=== PATIENT | male | born 1960 | race African-American/Black ===

== ENCOUNTER 2021-01-08 04:29 | Observation (INO) | payer OTHER ==
[2021-01-08 04:56] VITALS: Wt 109.1 kg
[2021-01-08 05:11] LABS: BASOPHILS 0.4 % (0-2); EOSINOPHILS 0.8 % (0-7); HEMATOCRIT 42.6 % (42.0-54.0); HEMOGLOBIN 14.5 g/dL (13.5-17.5); LYMPHOCYTES 10.8 % (15-50); MCHC 34.2 g/dL (31.0-37.0); MCV 87.9 fL (80.0-100.0); MEAN PLATELET VOLUME 9.7 fL (7.4-10.4); MONOCYTES 5.6 % (2-11); NEUTROPHILS 82.4 % (40-80); PLATELET COUNT 197 10x3/uL (130-400); RBC 4.84 10x6/uL (4.20-6.10); RDW 12.6 % (11.5-14.5); WBC 8.7 10x3/uL (4.8-10.8)
[2021-01-08 05:23] LABS: CALC OSMOLALITY 284 mosm/kg (275-300); CALCIUM 9.4 mg/dL (8.5-10.1); CHLORIDE - SERUM 104 mmol/L (98-107); CREATININE - SERUM 1.7 mg/dL (0.6-1.3); GLUCOSE 138 mg/dL (74-106); POTASSIUM - SERUM 3.6 mmol/L (3.5-5.1); SODIUM 141 mmol/L (136-145); UREA NITROGEN 17 mg/dL (7-18); eGFR NON AFRICAN AMERICAN 44 mL/min (90-120)
[2021-01-08 05:45] LABS: ALBUMIN 4.2 g/dL (3.4-5.0); ALKALINE PHOSPHATASE 69 U/L (30-120); ALT (SGPT) 41 U/L (10-68); BILIRUBIN - TOTAL 0.57 mg/dL (0.2-1.3); LIPASE 114 U/L (73-393); MAGNESIUM - SERUM 1.9 mg/dL (1.8-2.4); PRO BNP 53 pg/mL (0-125); PROTEIN - SERUM 7.9 g/dL (6.4-8.2)
[2021-01-08 05:51] LABS: CKMB 8.3 U/L (0.0-3.6); CREATINE KINASE 1157 UL (21-232); TROPONIN-I < 0.017 ng/mL (0.000-0.060)
[2021-01-08 06:04] LABS: INR 1.07 (0.85-1.17); PROTIME 12.8 SECONDS (11.6-15.0)
[2021-01-08 06:05] LABS: D-DIMER-QUANTITATIVE 0.27 ug/mLFEU (0.20-0.54)
[2021-01-08 08:48] VITALS: BP 129/81
--- NOTE | 2021-01-08 09:00 | NUR ---
PATIENT C/O INTERMITTENT LOWER LEG CRAMPS AT 10/10. REFUSED MORPHINE. COFFEE AND APPLE JUICE GIVEN.
--- NOTE | 2021-01-08 09:19 | NUR ---
Report received from Inessa Salamanca RN.
[2021-01-08 10:56] LABS: CKMB 5.6 U/L (0.0-3.6)
[2021-01-08 10:58] LABS: CREATINE KINASE 927 UL (21-232); TROPONIN-I < 0.017 ng/mL (0.000-0.060)
--- NOTE | 2021-01-08 11:26 | NUR ---
Pt reports feeling "completely better" at this time. Appears in no distress.
[2021-01-08 12:30] VITALS: BP 137/70
--- NOTE | 2021-01-08 13:27 | NUR ---
Pt ate lunch with no difficulty. Resting comfortably in bed.
[2021-01-08 13:30] VITALS: BP 153/64
--- NOTE | 2021-01-08 14:29 | NUR ---
1425- CALLED REPORT TO JAI- PATIENT IN DIALYSIS UNABLE TO OBTAIN RECENT VITAL SIGNS- DIALYSIS NURSE TRANSFERRING PT TO ROOM [id number].
--- NOTE | 2021-01-08 15:30 | NUR ---
IST ENCOUNTER WITH PT. CALLED TO ROOM PT STATED, "I'M LEAVING. I CAN'T STAY HERE ANY LONGER" EXPL TO PT THE IMPORTANCE AND BENEFITS OF STAYING AND GETTING DEFINITIVE POC/DX. PT STATED "I'M NOT STAYING. EITHER YOU PULL THIS IV AND LINES OFF ME OR I WILL. I'M LEAVING" RFA SL D/C'D INTACT. AMA EXPL TO PT. VERB UNDER. AMA SIGNED AND WITNESSED
--- NOTE | 2021-01-09 13:16 | EC ---
PATIENT:CIERRA VALENCIA DATE OF SERVICE: 01/08/21 SEX: M MEDICAL RECORD: [id number] DATE OF : 62 LOCATION:[place] [id number] AGE OF PATIENT: 60 ADMISSION DATE: 01/08/21 REFERRING PHYSICIAN: INTERPRETING PHYSICIAN: INDER ZAMAN MD ECHOCARDIOGRAM REPORT ECHO CHARGES 4 ECHO COMPLETE Date: 01/08/21 CLINICAL DIAGNOSIS: CP ECHOCARDIOGRAPHIC MEASUREMENTS (adult normal given) AC root (d.<3.7cm) 3.1 cm LV Septum d (<1.2 cm> 1.1 cm Valve Excursion 1.4 cm LV Septum (systole) 1.2 cm Left Atria (s.<4.0cm> 3.7 cm LVPW d(<1.2cm) 0.8 cm RV (d.<2.3cm) 2.2 cm LVPW (sytole) 1.4 cm LV diastole(<5.6CM) 5.3 cm MV E-F(>70mm/sec) cm LV systole 3.8 cm LVOT Diameter 1.9 cm MV exc.(>10mm) 1.4 cm Est.ejection fraction (50-75%) % DOPPLER: LVIT cm/sec A 95 cm/sec E 86 cm/sec LA cm/sec RVSP 16 mmHg LVOT 149 cm/sec AOP1/2T m/s Asc. 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 Nieto TAPE# Pericardial Effusion N DATE OF SERVICE: DIAGNOSIS: Chest pain. INTERPRETATION: Technically difficult study. FINDINGS: Overall normal LV chamber size and contractile function, ejection fraction of 55% to 60%. Left atrial chamber appears normal. Right atrium and right ventricular chamber was not well visualized, but appeared normal. Aortic valve is not well visualized, but appears normal. No aortic ECHOCARDIOGRAM REPORT [id number] CIERRA VALENCIA stenosis/regurgitation. Mitral valve appears normal. Trivial mitral regurgitation. Tricuspid valve is not well visualized. Trivial tricuspid regurgitation. Pulmonic valve is not well visualized. No pulmonary regurgitation. No pericardial effusion visualized. IMPRESSION: Technically difficult study, overall normal left ventricular chamber size and contractile function with ejection fraction of 55% to 60%. TRANSINT:[id number] Voice Confirmation ID: [id number] DOCUMENT ID: [id number] INDER ZAMAN MD at 1316 CC: [id number] DICTATION DATE: 01/08/21 1329 INTENSIVE CARE AMBULANCE PARAMEDIC: 01/08/21 1349 DIS IN 01/08/21 [place] [id number] [place] [id number]
== END 2021-01-08 15:44 | disposition left against medical advice (07) ==
LOC: D.ER 04:29 → D.EDHOLD 06:35 → OBSVTIME 06:35 → D.EDHOLD 06:35 → D.M2 14:11 → D.EDHOLD 14:55
PROVIDERS: Emergency Medicine; Family Medicine; ADMIT Family Medicine; ATTEND Family Medicine
DX: M62.82 Rhabdomyolysis (principal); R07.9 Chest pain, unspecified; N28.9 Disorder of kidney and ureter, unspecified; R73.9 Hyperglycemia, unspecified; I10 Essential (primary) hypertension; E78.5 Hyperlipidemia, unspecified